=== PATIENT | female | born 1945 | race African-American/Black ===

== ENCOUNTER → 2017-11-08 | Outpatient (CLI) | payer MEDICARE, MEDICAID ==
[~2017-11-08] MED LIST: ATOR20TA65 PO; HYDR-519 PO; VALS1TAB72 PO
== END | disposition home or self-care (01) ==
LOC: MRI 08:14
PROVIDERS: ATTEND Neurological Surgery
DX: M47.892 Other spondylosis, cervical region (principal)
CPT/HCPCS: 72141

== ENCOUNTER → 2018-01-25 | Outpatient (CLI) | payer MEDICARE, MEDICAID | END | disposition home or self-care (01) | LOC: RAD 07:59 | PROVIDERS: ATTEND Neurological Surgery | DX: M48.061 Spinal stenosis, lumbar region without neurogenic claudication (principal); M51.26 Other intervertebral disc displacement, lumbar region; M51.27 Other intervertebral disc displacement, lumbosacral region; M51.36 Other intervertebral disc degeneration, lumbar region; M54.2 Cervicalgia | CPT/HCPCS: 72148 ==

== ENCOUNTER 2018-02-18 16:00 | Inpatient (IN) | payer MEDICARE, MEDICAID ==
[~2018-02-18] VITALS: Ht 160 cm; Wt 96.6 kg
[~2018-02-18 16:00] MED LIST changes: +ALBU18HF2 IH; +AMLO10TA4 PO; +ATOR10TA PO
[2018-02-18] MEDS ORDERED: DEXTROSE 50% WATER 50ML SYRINGE IV PRN (17:15)
[2018-02-18 17:30] VITALS: BP 119/60
[2018-02-18] MEDS ORDERED: HYDROMORPHONE HCL/PF 2MG/ML CPJ IV PRN (17:30)
[2018-02-18] MEDS ORDERED: DIPHENHYDRAMINE 50MG/ML VIAL IV PRN (17:30)
[2018-02-18] MEDS ORDERED: ONDANSETRON HCL 4MG TABLET PO PRN (17:30)
[2018-02-18] MEDS ORDERED: IPRATROPIUM/ALBUTEROL 0.5-3(2.5)MG/3ML NEB HHN PRN (17:30)
[2018-02-18] MEDS ORDERED: CYCLOBENZAPRINE 10MG TABLET PO PRN (17:30)
[2018-02-18] MEDS ORDERED: BISACODYL 10MG SUPP PR PRN (17:30)
[2018-02-18] MEDS ORDERED: ACETAMINOPHEN 650MG/20.3ML UDC PO PRN (17:30)
[2018-02-18] MEDS ORDERED: CLONIDINE 0.1MG TABLET PO PRN (17:30)
[2018-02-18] MEDS: MORPHINE SULFATE 4 MG/ML CPJ (NOT FOR IM USE) IV PRN ×2 (18:35→23:16)
[2018-02-18 20:00] VITALS: BP 123/68
[2018-02-18] MEDS: INSULIN LISPRO 100 UNITS/ML SUBCUT SCH (21:00)
[2018-02-18] MEDS: BLOOD SUGAR DIAGNOSTIC STRIP TEST SCH (21:09)
[2018-02-18] MEDS: HYDROCODONE/ACETAMINOPHEN 5/325MG TABLET PO PRN (21:09)
[2018-02-19] MEDS: IPRATROPIUM/ALBUTEROL 0.5-3(2.5)MG/3ML NEB HHN SCH ×6 (01:22→20:51)
[2018-02-19] MEDS: MORPHINE SULFATE 4 MG/ML CPJ (NOT FOR IM USE) IV PRN ×2 (04:27→08:45)
[2018-02-19] MEDS: BLOOD SUGAR DIAGNOSTIC STRIP TEST SCH ×4 (06:30→21:08)
[2018-02-19] MEDS: INSULIN LISPRO 100 UNITS/ML SUBCUT SCH ×4 (07:31→21:00)
[2018-02-19 08:00] VITALS: BP 123/69
[2018-02-19] MEDS: AMLODIPINE 10MG TABLET PO SCH (08:43)
[2018-02-19] MEDS: POLYETHYLENE GLYCOL 3350 (17GM) 1 DOSE PACK PO SCH (10:45)
[2018-02-19] MEDS: DOCUSATE SODIUM 100MG CAPSULE PO SCH ×2 (10:46→17:12)
[2018-02-19] MEDS: LIDOCAINE 5% PATCH TOP SCH (10:50)
[2018-02-19] MEDS: HYDROMORPHONE HCL 2MG TABLET PO PRN ×3 (13:00→22:43)
[2018-02-19 20:00] VITALS: BP 120/66
[2018-02-20] VITALS: BP 126/69
[2018-02-20] MEDS: IPRATROPIUM/ALBUTEROL 0.5-3(2.5)MG/3ML NEB HHN SCH ×7 (01:28→20:00)
[2018-02-20 02:08] VITALS: BP 129/65
[2018-02-20] MEDS: HYDROMORPHONE HCL 2MG TABLET PO PRN ×4 (05:24→20:30)
[2018-02-20] MEDS: BLOOD SUGAR DIAGNOSTIC STRIP TEST SCH ×4 (06:16→21:00)
[2018-02-20] MEDS: INSULIN LISPRO 100 UNITS/ML SUBCUT SCH ×4 (06:16→21:00)
[2018-02-20 06:47] LABS: BASOPHILS % 1.1 % (0.0-2.0); EOSINOPHILS % 9.6 % (0.0-5.0); HEMATOCRIT. 35.2 % (36.0-48.0); HEMOGLOBIN. 11.7 g/dL (12.0-16.0); LYMPHOCYTES % 26.4 % (20.0-50.0); MEAN CORPUSCULAR HEMOGLOBIN 27.7 pg (28.0-32.0); MEAN CORPUSCULAR VOLUME 83.1 fL (81.0-99.0); MEAN PLATELET VOLUME 8.2 fl (7.4-10.4); MONOCYTES % 10.9 % (2.0-8.0); PLATELET 378 x1000/uL (130-400); RED BLOOD CELL COUNT 4.23 mill/uL (4.2-5.4)
[2018-02-20 07:04] LABS: CHLORIDE 101 mEq/L (98-107)
[2018-02-20 07:23] LABS: LDL CHOLESTEROL 70 mg/dL (5-100)
[2018-02-20 07:25] LABS: HDL CHOLESTEROL 31 mg/dL (40-59)
[2018-02-20 08:00] VITALS: BP 140/79
[2018-02-20] MEDS: POLYETHYLENE GLYCOL 3350 (17GM) 1 DOSE PACK PO SCH (09:00)
[2018-02-20] MEDS: AMLODIPINE 10MG TABLET PO SCH (09:35)
[2018-02-20] MEDS: DOCUSATE SODIUM 100MG CAPSULE PO SCH ×2 (09:35→17:28)
[2018-02-20] MEDS: LIDOCAINE 5% PATCH TOP SCH (09:36)
[2018-02-20] MEDS: CYCLOBENZAPRINE 10MG TABLET PO SCH (17:46)
[2018-02-20 20:05] VITALS: BP 125/67
[2018-02-20] MEDS: AMITRIPTYLINE 25MG TABLET PO SCH (20:30)
[2018-02-20 23:52] LABS: CLARITY URINE CLEAR (CLEAR); COLOR URINE YELLOW (YELLOW); KETONES URINE NEGATIVE (NEGATIVE); LEUKOCYTE ESTERASE URINE NEGATIVE (NEGATIVE); NITRITE URINE POSITIVE (NEGATIVE); OCCULT BLOOD URINE 1+ (NEGATIVE); PROTEIN URINE NEGATIVE (NEGATIVE); SPECIFIC GRAVITY URINE 1.012 (1.005-1.030)
[2018-02-21] MEDS: IPRATROPIUM/ALBUTEROL 0.5-3(2.5)MG/3ML NEB HHN SCH ×5 (00:13→21:23)
[2018-02-21] MEDS: HYDROMORPHONE HCL 2MG TABLET PO PRN ×4 (04:25→19:52)
[2018-02-21] MEDS: CYCLOBENZAPRINE 10MG TABLET PO SCH ×3 (06:19→21:55)
[2018-02-21] MEDS: BLOOD SUGAR DIAGNOSTIC STRIP TEST SCH ×4 (06:24→20:56)
[2018-02-21 08:09] VITALS: BP 123/60
[2018-02-21] MEDS: INSULIN LISPRO 100 UNITS/ML SUBCUT SCH ×4 (09:00→20:56)
[2018-02-21] MEDS: POLYETHYLENE GLYCOL 3350 (17GM) 1 DOSE PACK PO SCH (09:00)
[2018-02-21] MEDS: LIDOCAINE 5% PATCH TOP SCH ×2 (09:00→09:39)
[2018-02-21] MEDS: DOCUSATE SODIUM 100MG CAPSULE PO SCH ×2 (09:38→18:11)
[2018-02-21] MEDS: AMLODIPINE 10MG TABLET PO SCH (09:38)
[2018-02-21] MEDS: PANTOPRAZOLE 40MG DR TABLET PO SCH ×2 (18:11→20:51)
[2018-02-21 20:00] VITALS: BP 114/61
[2018-02-21] MEDS: AMITRIPTYLINE 25MG TABLET PO SCH (20:51)
[2018-02-21] MEDS: HYDROCODONE/ACETAMINOPHEN 5/325MG TABLET PO PRN (21:04)
[2018-02-22 00:02] LABS: CLARITY URINE CLEAR (CLEAR); COLOR URINE YELLOW (YELLOW); KETONES URINE NEGATIVE (NEGATIVE); LEUKOCYTE ESTERASE URINE 1+ (NEGATIVE); NITRITE URINE POSITIVE (NEGATIVE); OCCULT BLOOD URINE TRACE (NEGATIVE); PH URINE 5.5 (4.5-8.0); PROTEIN URINE NEGATIVE (NEGATIVE)
[2018-02-22] MEDS: IPRATROPIUM/ALBUTEROL 0.5-3(2.5)MG/3ML NEB HHN SCH ×6 (00:40→21:18)
[2018-02-22] MEDS: HYDROMORPHONE HCL 2MG TABLET PO PRN ×4 (04:17→21:15)
[2018-02-22] MEDS: CYCLOBENZAPRINE 10MG TABLET PO SCH ×2 (05:47→14:00)
[2018-02-22] MEDS: BLOOD SUGAR DIAGNOSTIC STRIP TEST SCH ×4 (05:47→21:05)
[2018-02-22] MEDS: INSULIN LISPRO 100 UNITS/ML SUBCUT SCH ×4 (06:33→21:00)
[2018-02-22 06:34] LABS: HEMATOCRIT 35.3 % (36.0-48.0); HEMOGLOBIN 11.5 g/dL (12.0-16.0); MEAN CORPUSCULAR HEMOGLOBIN 27.5 pg (28.0-32.0); MEAN CORPUSCULAR VOLUME 84.2 fL (81.0-99.0); PLATELET 453 x1000/uL (130-400); RED BLOOD CELL COUNT 4.19 mill/uL (4.2-5.4); RED CELL DISTRIBUTION WIDTH 14.2 % (11.6-14.6)
[2018-02-22 06:47] LABS: CHLORIDE 101 mEq/L (98-107)
[2018-02-22] MEDS: DOCUSATE SODIUM 100MG CAPSULE PO SCH ×2 (08:27→16:42)
[2018-02-22] MEDS: PANTOPRAZOLE 40MG DR TABLET PO SCH (08:27)
[2018-02-22] MEDS: AMLODIPINE 10MG TABLET PO SCH (08:27)
[2018-02-22] MEDS: POLYETHYLENE GLYCOL 3350 (17GM) 1 DOSE PACK PO SCH (08:28)
[2018-02-22] MEDS: LIDOCAINE 5% PATCH TOP SCH (08:29)
[2018-02-22 08:34] VITALS: BP 122/59
[2018-02-22] MEDS ORDERED: LEVOFLOXACIN 500MG PREMIX 100 ML IV SCH (14:00)
[2018-02-22] MEDS ORDERED: CALCIUM CARBONATE 500MG TABLET CHEW PO PRN (19:45)
[2018-02-22 20:00] VITALS: BP 96/72
[2018-02-22] MEDS: AMITRIPTYLINE 25MG TABLET PO SCH (21:05)
[2018-02-22] MEDS: FAMOTIDINE 20MG TABLET PO SCH (21:05)
[2018-02-22] MEDS ORDERED: BISACODYL 5MG TABLET PO PRN (22:00)
[2018-02-22] MEDS ORDERED: CYCLOBENZAPRINE 10MG TABLET PO SCH (23:45)
[2018-02-23] MEDS: IPRATROPIUM/ALBUTEROL 0.5-3(2.5)MG/3ML NEB HHN SCH ×2 (01:02→04:19)
[2018-02-23] MEDS: HYDROMORPHONE HCL 4MG TABLET PO PRN ×2 (03:22→12:05)
[2018-02-23] MEDS: BLOOD SUGAR DIAGNOSTIC STRIP TEST SCH ×2 (06:30→11:15)
[2018-02-23 08:00] VITALS: BP 144/70
[2018-02-23] MEDS: INSULIN LISPRO 100 UNITS/ML SUBCUT SCH ×2 (08:04→12:11)
[2018-02-23] MEDS: AMLODIPINE 10MG TABLET PO SCH (08:17)
[2018-02-23] MEDS: DOCUSATE SODIUM 100MG CAPSULE PO SCH (08:17)
[2018-02-23] MEDS: FAMOTIDINE 20MG TABLET PO SCH (08:17)
[2018-02-23] MEDS: LIDOCAINE 5% PATCH TOP SCH (08:19)
[2018-02-23] MEDS: POLYETHYLENE GLYCOL 3350 (17GM) 1 DOSE PACK PO SCH (08:19)
[2018-02-23] MEDS ORDERED: NITROFURANTOIN 100MG M/M CAPSULE PO SCH (12:00)
[2018-02-23 16:27] VITALS: BP 129/77
== END 2018-02-23 17:15 | disposition home health service (06) | DRG 552 ==
PROVIDERS: ADMIT Psychiatry & Neurology Neurology; ATTEND Internal Medicine
DX: M47.816 Spondylosis without myelopathy or radiculopathy, lumbar region (principal); N39.0 Urinary tract infection, site not specified; G89.29 Other chronic pain; R09.02 Hypoxemia; M79.609 Pain in unspecified limb; E11.9 Type 2 diabetes mellitus without complications; K59.00 Constipation, unspecified; M19.90 Unspecified osteoarthritis, unspecified site; E66.01 Morbid (severe) obesity due to excess calories; R26.9 Unspecified abnormalities of gait and mobility; G47.30 Sleep apnea, unspecified; M48.07 Spinal stenosis, lumbosacral region; M54.5 Low back pain; J44.9 Chronic obstructive pulmonary disease, unspecified; I10 Essential (primary) hypertension; B96.20 Unspecified Escherichia coli [E. coli] as the cause of diseases classified elsewhere; G89.18 Other acute postprocedural pain; F39 Unspecified mood [affective] disorder; Z88.0 Allergy status to penicillin; Z88.6 Allergy status to analgesic agent; Z91.041 Radiographic dye allergy status; Z74.01 Bed confinement status; Z68.37 Body mass index [BMI] 37.0-37.9, adult; Z79.899 Other long term (current) drug therapy; Z99.81 Dependence on supplemental oxygen
CPT/HCPCS: 36415; 80048; 80061; 81003; 82962; 83036; 85025; 85027; 87077; 87086; 87186; 93970; 94640; 97110; 97116; 97162; 97166; 97530; 97535; 97760; J1956; J2270; J7050; J7620

== ENCOUNTER → 2018-05-22 | Outpatient (CLI) | payer MEDICARE, MEDICAID ==
[~2018-05-22] MED LIST changes: -ATOR10TA PO; -ATOR20TA65 PO; -VALS1TAB72 PO
== END | disposition home or self-care (01) ==
LOC: RAD 10:55
PROVIDERS: ATTEND Neurological Surgery
DX: M43.16 Spondylolisthesis, lumbar region (principal); M85.88 Other specified disorders of bone density and structure, other site
CPT/HCPCS: 72114

== ENCOUNTER 2022-12-01 12:05 | Emergency (ER) | payer MEDICARE, MEDICAID ==
[~2022-12-01] VITALS: Ht 162.6 cm; Wt 80.0 kg
[~2022-12-01 12:05] MED LIST changes: +CLIN-194 MT; +HYDR-4001 MT; +OXYM30SP26 BOTHNSTRLS
[2022-12-01 12:17] VITALS: BP 174/88
== END 2022-12-01 14:39 | disposition home or self-care (01) ==
LOC: ER 12:05
DX: R04.0 Epistaxis (principal); J45.909 Unspecified asthma, uncomplicated; I10 Essential (primary) hypertension; Z88.0 Allergy status to penicillin
CPT/HCPCS: 99281